=== PATIENT | female | born 1945 | race Caucasian/White ===

== ENCOUNTER 2024-06-23 12:32 | Outpatient (OUT) | payer OTHER, SELFPAY ==
--- NOTE | 2024-06-23 13:00 | CA_ITS ---
Patient Name: DADA WOODARD MR#: [id number] : 1945 Exam Date: 06/23/2024 Ordering Doctor: KURT IBARRA ECHOCARDIOGRAM REPORT PROCEDURE: CA ECHO DOPPLER COMPLETE INDICATIONS: Atrial fibrillation, pacemaker, hypertension, smoker COMPARISON: None. DESCRIPTION: COMPLETE ECHOCARDIOGRAM Real-time transthoracic echocardiography with 2D, M-mode, spectral and color flow Doppler performed. QUALITY: Technical quality was good. LEFT VENTRICLE: Normal chamber size. Moderate concentric left ventricular hypertrophy. Normal systolic function. LV EF: Normal left ventricular ejection fraction, (>55%). DIASTOLIC: Normal diastolic function. ATRIAL SEPTUM: Visually appears intact. LEFT ATRIUM: Normal chamber size. RIGHT ATRIUM: Normal chamber size. RIGHT VENTRICLE: Normal chamber size. Normal right ventricular systolic function. Pacer wire present. TRICUSPID VALVE: Normal mobility and thickness. No stenosis with trivial regurgitation. No evidence of pulmonary hypertension. RVSP 31 mmHg MITRAL VALVE: Normal mobility and thickness. No evidence of mitral valve stenosis. There is no mitral annular calcification. No mitral regurgitation. AORTIC VALVE: Normal trileaflet appearance. No visible sclerosis. Normal leaflet mobility. No evidence of aortic valve stenosis. No aortic regurgitation. AORTIC ROOT: Normal diameter and appearance. Ascending aorta is normal in size. PULMONIC VALVE: Normal thickness and mobility. No stenosis. No regurgitation. PERICARDIUM: Trivial pericardial effusion. IVC: Collapses with inspirations. IVC is dilated (2.3 cm) PLEURA: CONCLUSION: 1. Moderate concentric left ventricular hypertrophy with normal systolic function. LVEF is estimated at 55 to 60%. 2. Normal right ventricular size and systolic function. 3. No significant valvular dysfunction. 4. Normal diastolic function. 5. Normal right-sided pressures. Adult Echocardiography Procedure Report Left Ventricle LVEDD (3.7 - 5.6 cm): 3.75 cm LVESD (2.2 - 4.0 cm): 1.85 cm LVIVS thickness (0.6 - 1.2 cm): 1.53 cm LVPW thickness (0.5 - 1.0 cm): 1.24 cm e': 0.07 m/s E - e': 6.62 LVOT Max Gradient: 2.01 mm[Hg] LVOT Area (cm2): 0.71 m/s Peak Velocity (LVOT): 0.71 m/s Mean Velocity (LVOT): 0.46 m/s LVOT Diameter 2.23 cm Left Atrium LA Volume Index (2D A2C): 35.65 ml/m2 Left Atrium Systolic Dimension: 3.69 cm Mitral Valve MV E to A Ratio: 0.81 Mitral Valve A-Wave Peak Velocity: 0.59 m/s Mitral Valve E-Wave Peak Velocity: 0.48 m/s Right Ventricle Aorta AO Root Diam: 3.38 cm Ascending Ao Diam: 3.36 cm Aortic Valve AoV Area (Peak Christopher): 2.41 cm2, 2.41 cm2 AoV Area (VTI): 2.64 cm2, 2.64 cm2 Peak Velocity(Antegrade Flow): 1.15 m/s Peak Gradient(Antegrade Flow): 5.28 mm[Hg] Mean Velocity(Antegrade Flow): 0.75 m/s Mean Gradient(Antegrade Flow): 2.65 mm[Hg] Velocity Time Integral: 23.76 cm Tricuspid Valve Peak Velocity (Regurgitant Flow): 2.41 m/s Pulmonic Valve Mean Gradient: 1.07 mm[Hg] Mean Velocity: 0.49 m/s Peak Velocity: 0.69 m/s, 0.65 m/s Peak Gradient: 1.71 mm[Hg], 1.90 mm[Hg] Right Atrium Right Atrium Systolic Pressure: 17.67 ml, 17.67 ml Dictated by: Ovi Riggins M.D. on 06/23/2024 at 18:38 Approved by: Ovi Riggins M.D. on 06/23/2024 at 18:41
== END 2024-06-23 12:33 | disposition home or self-care (01) ==
LOC: CARD 12:38
PROVIDERS: PCP Family Medicine; Visit Provider Internal Medicine Cardiovascular Disease
DX: I48.91 Unspecified atrial fibrillation (principal); R94.31 Abnormal electrocardiogram [ECG] [EKG]
CPT/HCPCS: 93306